=== PATIENT | male | born 1985 | race Two or more races ===

== ENCOUNTER 2020-02-26 06:06 | Day surgery (SDC) | payer OTHER ==
[2020-02-23 10:33] VITALS: BMI 31.6
[2020-02-26] MEDS ORDERED: MIDAZOLAM HCL 2 MG/2 ML SINGLE DOSE VIAL ONE (12:27)
[2020-02-26] MEDS ORDERED: PROPOFOL 20 ML ONE ×2 (12:27→12:58)
[2020-02-26 15:23] VITALS: BP 139/79; PULSE 98; TEMP 98.4
== END 2020-02-26 15:24 | disposition home or self-care (01) ==
LOC: JASU-SURG 06:06 → EDBD 15:15 → JASU-SURG 15:24
PROVIDERS: ATTEND Urology
PROC: 0TF4XZZ Fragmentation in Left Kidney Pelvis, External Approach (ICD-10-PCS; principal; 2020-02-26 11:00)
DX: N20.0 Calculus of kidney (principal)

== ENCOUNTER 2020-04-22 04:26 | Day surgery (SDC) | payer OTHER ==
[2020-04-18 11:20] VITALS: BMI 30.4
[2020-04-22] MEDS ORDERED: MIDAZOLAM HCL 2 MG/2 ML SINGLE DOSE VIAL ONE (11:19)
[2020-04-22] MEDS ORDERED: PROPOFOL 20 ML ONE ×2 (11:19→11:37)
[2020-04-22] MEDS ORDERED: oxyCODONE HCL 5 MG TABLET ONE (12:37)
[2020-04-22 13:59] VITALS: BP 130/79; PULSE 91; TEMP 98.2
== END 2020-04-22 13:40 | disposition home or self-care (01) ==
LOC: JASU-SURG 04:26
PROVIDERS: ATTEND Urology
PROC: 0TF4XZZ Fragmentation in Left Kidney Pelvis, External Approach (ICD-10-PCS; principal; 2020-04-22 10:30)
DX: N20.0 Calculus of kidney (principal)

== ENCOUNTER 2021-11-20 13:16 | Emergency (ER) | payer OTHER ==
[2021-11-20 13:22] VITALS: BP 126/80; PULSE 78; RESP 18; TEMP 98.2; BMI 31.6
[2021-11-20] MEDS ORDERED: KETOROLAC TROMETHAMINE 30 MG/1 ML VIAL IM ONE (14:23)
[2021-11-20] MEDS ORDERED: KETOROLAC TROMETHAMINE 30 MG/1 ML VIAL ONE (14:26)
== END 2021-11-20 16:44 | disposition home or self-care (01) ==
LOC: JERFT 13:16
PROC: 3E0233Z Introduction of Anti-inflammatory into Muscle, Percutaneous Approach (ICD-10-PCS; principal; 2021-11-20)
DX: S62.614A Displaced fracture of proximal phalanx of right ring finger, initial encounter for closed fracture (principal); X50.0XXA Overexertion from strenuous movement or load, initial encounter
CPT/HCPCS: 73140-TC-RT-FY; 96372; 99284-25

== ENCOUNTER 2021-12-03 11:01 | Day surgery (SDC) | payer OTHER ==
[2021-12-02 15:16] VITALS: BMI 32.2
[2021-12-03 12:10] VITALS: RESP 20
[2021-12-03] MEDS ORDERED: MIDAZOLAM HCL 2 MG/2 ML SINGLE DOSE VIAL ONE (13:55)
[2021-12-03] MEDS ORDERED: PROPOFOL 20 ML ONE ×2 (13:55→13:57)
[2021-12-03] MEDS ORDERED: ROCURONIUM BROMIDE 50 MG/5 ML SYRINGE ONE (13:58)
[2021-12-03] MEDS ORDERED: ONDANSETRON 4 MG/2 ML VIAL IVPUSH PRN (15:40)
[2021-12-03] MEDS ORDERED: KETOROLAC TROMETHAMINE 30 MG/1 ML VIAL IVPUSH ONE (15:40)
[2021-12-03] MEDS ORDERED: oxyCODONE HCL 5 MG TABLET PO PRN (15:40)
[2021-12-03] MEDS ORDERED: ACETAMINOPHEN 1000 MG/100 ML BAG IVPB ONE (15:40)
[2021-12-03] MEDS ORDERED: ACETAMINOPHEN INJECTION 100 ML IVPB ONE (15:42)
[2021-12-03] MEDS ORDERED: FENTANYL CITRATE/PF 50 MCG/ML VIAL ONE ×3 (15:42→16:16)
[2021-12-03] MEDS ORDERED: LACTATED RINGERS SOLUTION 1,000 ML IV SCH (15:45)
[2021-12-03] MEDS ORDERED: ONDANSETRON 4 MG/2 ML VIAL ONE (16:16)
[2021-12-03 17:35] VITALS: PULSE 82; TEMP 97.7
[2021-12-03 17:44] VITALS: BP 132/86
== END 2021-12-03 17:40 | disposition home or self-care (01) ==
LOC: FASU 11:01
PROVIDERS: ATTEND Orthopaedic Surgery Hand Surgery
PROC: 0PST04Z Reposition Right Finger Phalanx with Internal Fixation Device, Open Approach (ICD-10-PCS; principal; 2021-12-03 14:24)
DX: S62.614A Displaced fracture of proximal phalanx of right ring finger, initial encounter for closed fracture (principal); X58.XXXA Exposure to other specified factors, initial encounter; Y93.9 Activity, unspecified; Y92.9 Unspecified place or not applicable
CPT/HCPCS: 73140-TC-RT-FY; 94760; C1713

== ENCOUNTER 2022-04-30 00:35 | Emergency (ER) | payer OTHER ==
[2022-04-30 00:45] VITALS: RESP 18; TEMP 98.7; BMI 36.5
[2022-04-30] MEDS ORDERED: CYCLOBENZAPRINE HCL 10 MG TABLET (FP) PO ONE (00:58)
[2022-04-30] MEDS ORDERED: KETOROLAC TROMETHAMINE 30 MG/1 ML VIAL IM ONE (00:58)
[2022-04-30] MEDS ORDERED: CYCLOBENZAPRINE HCL 5 MG TABLET ONE (01:02)
[2022-04-30] MEDS ORDERED: KETOROLAC TROMETHAMINE 30 MG/1 ML VIAL ONE (01:02)
[2022-04-30 01:43] VITALS: BP 150/101; PULSE 86
== END 2022-04-30 01:44 | disposition home or self-care (01) ==
LOC: FER 00:35
PROC: 3E0233Z Introduction of Anti-inflammatory into Muscle, Percutaneous Approach (ICD-10-PCS; principal; 2022-04-30)
DX: S13.4XXA Sprain of ligaments of cervical spine, initial encounter (principal); V44.5XXA Car driver injured in collision with heavy transport vehicle or bus in traffic accident, initial encounter
CPT/HCPCS: 99284-25